=== PATIENT | male | born 1985 | race African-American/Black ===

== ENCOUNTER 2016-09-23 00:14 | Emergency (ER) | payer OTHER | END 2016-09-23 02:00 | disposition home or self-care (01) | LOC: D.ER 00:14 | DX: K02.9 Dental caries, unspecified (principal); K08.89 Other specified disorders of teeth and supporting structures; F17.200 Nicotine dependence, unspecified, uncomplicated ==

== ENCOUNTER 2016-11-08 14:16 | Emergency (ER) | payer OTHER ==
[2016-11-08 15:09] LABS: BASOPHILS 0.8 % (0-2); EOSINOPHILS 1.8 % (0-7); HEMOGLOBIN 12.7 g/dL (13.5-17.5); LYMPHOCYTES 35.9 % (15-50); MCH 24.3 pg (26.0-34.0); MCHC 31.8 g/dL (31.0-37.0); MCV 76.5 fL (80.0-100.0); MONOCYTES 12.9 % (2-11); NEUTROPHILS 48.6 % (40-80); RBC 5.23 10x6/uL (4.20-6.10); RDW 15.9 % (11.5-14.5)
[2016-11-08 15:10] LABS: PLATELET COUNT 140 10x3/uL (130-400)
[2016-11-08 15:20] LABS: APPEARANCE CLEAR (CLEAR); BILIRUBIN NEGATIVE (NEGATIVE); COLOR YELLOW (YELLOW); GLUCOSE NEGATIVE (NEGATIVE); KETONE NEGATIVE (NEGATIVE); LEUKOCYTE ESTERASE NEGATIVE (NEGATIVE); NITRITE NEGATIVE (NEGATIVE); PROTEIN NEGATIVE (NEGATIVE); UROBILINOGEN NORMAL (NORMAL)
[2016-11-08 15:40] LABS: AMYLASE - SERUM 78 U/L (25-115); LIPASE 102 U/L (73-393)
== END 2016-11-08 16:55 | disposition left against medical advice (07) ==
LOC: D.ER 14:16
PROVIDERS: Emergency Medicine
DX: R10.13 Epigastric pain (principal)

== ENCOUNTER 2017-01-04 12:47 | Emergency (ER) | payer OTHER | END 2017-01-04 14:11 | disposition home or self-care (01) | LOC: D.ER 12:47 | DX: S39.012A Strain of muscle, fascia and tendon of lower back, initial encounter (principal); X58.XXXA Exposure to other specified factors, initial encounter; Y93.89 Activity, other specified; Y92.89 Other specified places as the place of occurrence of the external cause; F17.200 Nicotine dependence, unspecified, uncomplicated ==

== ENCOUNTER 2017-04-08 19:07 | Emergency (ER) | payer OTHER | END 2017-04-08 20:40 | disposition home or self-care (01) | LOC: D.ER 19:07 | DX: T50.905A Adverse effect of unspecified drugs, medicaments and biological substances, initial encounter (principal); Y92.019 Unspecified place in single-family (private) house as the place of occurrence of the external cause; M79.672 Pain in left foot; M79.671 Pain in right foot ==

== ENCOUNTER 2018-06-01 21:35 | Emergency (ER) | payer MEDICAID ==
[~2018-06-01] VITALS: Ht 182.9 cm; Wt 72.7 kg
[2018-06-01 21:47] VITALS: Ht 182.9 cm; Wt 72.7 kg
[2018-06-01 22:18] LABS: BASOPHILS 0.7 % (0-2); EOSINOPHILS 1.4 % (0-7); HEMOGLOBIN 11.9 g/dL (13.5-17.5); IMMATURE GRANULOCYTES 0.2 % (0-5); LYMPHOCYTES 35.4 % (15-50); MCH 23.6 pg (26.0-34.0); MCHC 32.2 g/dL (31.0-37.0); MCV 73.4 fL (80.0-100.0); MEAN PLATELET VOLUME 10.5 fL (7.4-10.4); MONOCYTES 9.2 % (2-11); NEUTROPHILS 53.1 % (40-80); PLATELET COUNT 139 10x3/uL (130-400); RBC 5.04 10x6/uL (4.20-6.10); RDW 15.5 % (11.5-14.5); WBC 4.4 10x3/uL (4.8-10.8)
[2018-06-01 22:29] LABS: ALBUMIN 4.1 g/dL (3.4-5.0); ALKALINE PHOSPHATASE 57 U/L (46-116); ALT (SGPT) 34 U/L (10-68); CALC OSMOLALITY 280 mosm/kg (275-300); CALCIUM 8.9 mg/dL (8.5-10.1); CARBON DIOXIDE 28.4 mmol/L (21.0-32.0); CHLORIDE - SERUM 103 mmol/L (98-107); GLUCOSE 84 mg/dL (74-106); POTASSIUM - SERUM 4.6 mmol/L (3.5-5.1); PROTEIN - SERUM 7.8 g/dL (6.4-8.2); SODIUM 141 mmol/L (136-145); UREA NITROGEN 16 mg/dL (7-18); eGFR NON AFRICAN AMERICAN > 90 mL/min (90-120)
[2018-06-01 22:34] LABS: AMYLASE - SERUM 65 U/L (25-115); LIPASE 72 U/L (73-393); TROPONIN-I < 0.017 ng/mL (0.000-0.060)
[2018-06-01 22:53] LABS: APPEARANCE CLEAR (CLEAR); BILIRUBIN NEGATIVE (NEGATIVE); COLOR YELLOW (YELLOW); GLUCOSE NEGATIVE (NEGATIVE); KETONE NEGATIVE (NEGATIVE); NITRITE NEGATIVE (NEGATIVE); PROTEIN NEGATIVE (NEGATIVE); SPECIFIC GRAVITY 1.015 (1.005-1.020); UROBILINOGEN NORMAL (NORMAL)
[2018-06-02] MEDS ORDERED: CARAFATE1 G PO (00:51)
[2018-06-02] MEDS ORDERED: PROTONIX40 MG PO (00:51)
[2018-06-02 01:25] VITALS: BP 113/67
== END 2018-06-02 01:28 | disposition home or self-care (01) ==
LOC: D.ER 21:35
PROVIDERS: Family Medicine
DX: K29.70 Gastritis, unspecified, without bleeding (principal)

== ENCOUNTER 2018-07-01 09:01 | Emergency (ER) | payer OTHER ==
[~2018-07-01] VITALS: Ht 182.9 cm; Wt 72.7 kg
[~2018-07-01 09:01] MED LIST: CARAFATE1 G PO; PROTONIX40 MG PO
[2018-07-01 09:07] VITALS: Ht 182.9 cm; Wt 72.7 kg
[2018-07-01 10:33] LABS: BASOPHILS 1.1 % (0-2); EOSINOPHILS 2.8 % (0-7); HEMATOCRIT 34.5 % (42.0-54.0); HEMOGLOBIN 10.9 g/dL (13.5-17.5); IMMATURE GRANULOCYTES 0.2 % (0-5); LYMPHOCYTES 27.6 % (15-50); MCH 22.9 pg (26.0-34.0); MCHC 31.6 g/dL (31.0-37.0); MCV 72.6 fL (80.0-100.0); MONOCYTES 10.7 % (2-11); NEUTROPHILS 57.6 % (40-80); PLATELET COUNT 151 10x3/uL (130-400); RBC 4.75 10x6/uL (4.20-6.10); WBC 4.7 10x3/uL (4.8-10.8)
[2018-07-01 10:48] LABS: ALBUMIN 3.5 g/dL (3.4-5.0); ALKALINE PHOSPHATASE 54 U/L (46-116); ALT (SGPT) 26 U/L (10-68); BILIRUBIN - TOTAL 0.18 mg/dL (0.2-1.3); CALC OSMOLALITY 286 mosm/kg (275-300); CALCIUM 8.4 mg/dL (8.5-10.1); CARBON DIOXIDE 26.5 mmol/L (21.0-32.0); CHLORIDE - SERUM 108 mmol/L (98-107); CREATININE - SERUM 0.9 mg/dL (0.6-1.3); GLUCOSE 94 mg/dL (74-106); PROTEIN - SERUM 6.7 g/dL (6.4-8.2); SODIUM 144 mmol/L (136-145); UREA NITROGEN 13 mg/dL (7-18); eGFR NON AFRICAN AMERICAN > 90 mL/min (90-120)
[2018-07-01] MEDS ORDERED: ACETAMINOPHEN500 M1 PO (11:46)
[2018-07-01] MEDS ORDERED: CYCLOBENZAPRINE10 MG PO (11:46)
[2018-07-01] MEDS ORDERED: IBUPROFEN800 MG PO (11:47)
[2018-07-01 13:43] VITALS: BP 109/55
== END 2018-07-01 13:56 | disposition home or self-care (01) ==
LOC: D.ER 09:01
PROVIDERS: Family Medicine
DX: S30.0XXA Contusion of lower back and pelvis, initial encounter (principal); W18.30XA Fall on same level, unspecified, initial encounter; Y93.89 Activity, other specified; Y92.89 Other specified places as the place of occurrence of the external cause; S39.012A Strain of muscle, fascia and tendon of lower back, initial encounter

== ENCOUNTER 2018-07-25 22:35 | Emergency (ER) | payer OTHER ==
[~2018-07-25] VITALS: Ht 182.9 cm; Wt 72.6 kg
[~2018-07-25 22:35] MED LIST changes: +ACETAMINOPHEN500 M1 PO; +CYCLOBENZAPRINE10 MG PO; +IBUPROFEN800 MG PO
[2018-07-25 22:48] VITALS: Ht 182.9 cm; Wt 72.6 kg
[2018-07-25] MEDS ORDERED: TORADOL10 MG PO (23:40)
[2018-07-26 00:18] VITALS: BP 128/77
== END 2018-07-26 00:22 | disposition home or self-care (01) ==
LOC: D.ER 22:35
DX: S92.502A Displaced unspecified fracture of left lesser toe(s), initial encounter for closed fracture (principal); X58.XXXA Exposure to other specified factors, initial encounter; Y93.89 Activity, other specified; Y92.89 Other specified places as the place of occurrence of the external cause